=== PATIENT | male | born 1960 | race Caucasian/White ===

== ENCOUNTER 2021-03-26 17:29 | Emergency (ER) | payer MEDICARE, MEDICAID ==
[~2021-03-26] VITALS: Ht 170.2 cm; Wt 85.5 kg
[2021-03-26 17:43] VITALS: TEMP 98.4
[2021-03-26] MEDS ORDERED: ASPIRIN 81M81 MG/TA2 PO ×2 (17:48→18:13)
[2021-03-26] MEDS ORDERED: ATACAND32 MG PO ×2 (17:48→18:12)
[2021-03-26 18:04] LABS: BASO # 0.1 K/mm3 (0.0-0.2); BASO % 0.7 % (0.0-2.0); EOS # 0.2 K/mm3 (0.0-0.7); EOS % 2.3 % (0-4.0); GRAN # 6.2 K/mm3 (1.4-6.5); GRAN % 67.9 % (42.2-75.2); HEMATOCRIT 41.1 % (42.0-52.0); HEMOGLOBIN 13.8 g/dl (13.5-18.0); LYMPH # 1.7 K/mm3 (1.2-3.4); LYMPH % 18.9 % (20.0-51.0); MEAN CELL VOLUME 88 fl (80.0-100.0); MEAN CORPUSCULAR HEMOGLOBIN 30 pg (27.0-31.0); MEAN CORPUSCULAR HGB CONC 34 g/dl (33.0-37.0); MEAN PLATELET VOLUME 9.5 fl (7.4-10.4); MONO # 0.8 K/mm3 (0.1-0.6); MONO % 9.1 % (1.7-9.3); PLATELET COUNT 236 K/mm3 (130-400); RED BLOOD COUNT 4.68 M/mm3 (4.20-5.60); REDCELL DISTRIBUTION WIDTH-CV 14.5 % (11.5-14.5)
[2021-03-26] MEDS ORDERED: DEPAKOTE ER 50500 MG PO (18:10)
[2021-03-26] MEDS ORDERED: BUSPAR DIVIDOSE15 MG PO (18:11)
[2021-03-26] MEDS ORDERED: SEROQUEL400 MG PO (18:11)
[2021-03-26] MEDS ORDERED: MULTI-VITAMIN W1 TA1 PO (18:12)
[2021-03-26] MEDS ORDERED: PROTONIX 40MG T40 MG PO (18:12)
[2021-03-26] MEDS ORDERED: PROFERRIN ES12 MG PO (18:13)
[2021-03-26] MEDS ORDERED: MAG-G500 MG (18:13)
[2021-03-26] MEDS ORDERED: FISH OIL 500 M1 EAC1 PO (18:14)
[2021-03-26 18:38] LABS: ALANINE AMINOTRANSFERASE 33 U/L (0-55); ALBUMIN 4.1 gm/dL (3.5-5.0); ALKALINE PHOSPHATASE 57 U/L (0-750); ANION GAP 10 mmol/L (7-16); AST,SGOT 25 U/L (5-34); BILIRUBIN,TOTAL 0.3 mg/dL (0.2-1.2); BLOOD UREA NITROGEN 20 mg/dL (8-26); CALCIUM 10.2 mg/dL (8.4-10.2); CARBON DIOXIDE 27 mmol/L (22-29); CHLORIDE 105 mmol/L (98-107); CREATININE, serum 1.12 mg/dL (0.72-1.25); POTASSIUM 4.2 mmol/L (3.5-4.5); SODIUM 142 mmol/L (136-145)
[2021-03-26 18:44] LABS: COLLECTION METHOD CLEAN CATCH
[2021-03-26 18:45] LABS: TROPONIN-I < 0.010 ng/mL (0.00-0.033)
[2021-03-26 18:50] LABS: PH 6 (5-8); SQUAMOUS EPITHELIAL None Seen /hpf; URINE APPEARANCE Clear; URINE BACTERIA None Seen /hpf; URINE BILIRUBIN Negative (NEGATIVE); URINE BLOOD Negative (NEGATIVE); URINE COLOR Straw; URINE GLUCOSE Negative (NEGATIVE); URINE KETONE Negative (NEGATIVE); URINE LEUKOCYTE ESTERASE Trace (NEGATIVE); URINE NITRATE Negative (NEGATIVE); URINE PROTEIN(semi-quant) Negative (NEGATIVE); URINE RBC 0-2 /hpf; URINE UROBILINOGEN Negative (NEGATIVE)
[2021-03-26 19:03] LABS: GLUCOSE 90 mg/dL (70-99)
[2021-03-26 22:20] VITALS: BP 169/118; PULSE 91
== END 2021-03-26 22:25 | disposition home or self-care (01) ==
LOC: COL.ER 17:29
PROVIDERS: Nurse Practitioner Primary Care
DX: I10 Essential (primary) hypertension (principal); I25.2 Old myocardial infarction; F25.9 Schizoaffective disorder, unspecified; F17.210 Nicotine dependence, cigarettes, uncomplicated; Z79.899 Other long term (current) drug therapy
CPT/HCPCS: J0360

== ENCOUNTER 2021-06-06 06:48 | Emergency (ER) | payer MEDICARE, MEDICAID ==
[~2021-06-06] VITALS: Ht 167.6 cm; Wt 90.9 kg
[~2021-06-06 06:48] MED LIST: ASPIRIN 81M81 MG/TA2 PO; ATACAND32 MG PO; BUSPAR DIVIDOSE15 MG PO; DEPAKOTE ER 50500 MG PO; FISH OIL 500 M1 EAC1 PO; MAG-G500 MG; MULTI-VITAMIN W1 TA1 PO; PROFERRIN ES12 MG PO; PROTONIX 40MG T40 MG PO; SEROQUEL400 MG PO
[2021-06-06 07:09] VITALS: TEMP 97.1
[2021-06-06 08:00] LABS: HEMOGLOBIN 11.8 g/dl (13.5-18.0); MEAN CELL VOLUME 90 fl (80.0-100.0); MEAN CORPUSCULAR HEMOGLOBIN 31 pg (27-31); MEAN CORPUSCULAR HGB CONC 34 g/dl (33.0-37.0); MEAN PLATELET VOLUME 9.1 fl (7.4-10.4); PLATELET COUNT 339 K/mm3 (130-400); RED BLOOD COUNT 3.87 M/mm3 (4.20-5.60)
[2021-06-06 08:12] LABS: BILIRUBIN,TOTAL 0.2 mg/dL (0.2-1.2); CALCIUM 9.4 mg/dL (8.4-10.2); CREATININE, serum 1.31 mg/dL (0.72-1.25); POTASSIUM 4.2 mmol/L (3.5-4.5); TOTAL PROTEIN 7.5 gm/dL (6.2-8.1)
[2021-06-06 08:41] LABS: EOSINOPHIL 3 % (0-4); LYMPHOCYTE 20 % (20.0-51.0); NEUTROPHILS 62 % (42.0-75.2)
[2021-06-06 08:42] LABS: PLATELET ESTIMATE NORMAL (NORMAL)
[2021-06-06 08:51] VITALS: BP 116/81; PULSE 101
== END 2021-06-06 08:51 | disposition home or self-care (01) ==
LOC: COL.ER 06:48
PROVIDERS: Student in an Organized Health Care Education/Training Program
DX: J06.9 Acute upper respiratory infection, unspecified (principal); F17.290 Nicotine dependence, other tobacco product, uncomplicated; Z20.822 Contact with and (suspected) exposure to COVID-19

== ENCOUNTER 2021-10-24 11:01 | Emergency (ER) | payer MEDICARE, MEDICAID ==
[~2021-10-24] VITALS: Ht 167.6 cm; Wt 98.6 kg
[2021-10-24] MEDS ORDERED: LEXAPRO 10MG10 MG PO (11:29)
[2021-10-24] MEDS ORDERED: VRAYLAR1.5 MG PO (11:30)
[2021-10-24] MEDS ORDERED: AMBIEN 10MG10 MG PO (11:30)
[2021-10-24] MEDS ORDERED: LOFIBRA160 MG PO (11:31)
[2021-10-24] MEDS ORDERED: NORVASC 10MG10 MG PO (11:31)
[2021-10-24] MEDS ORDERED: IRON TABLETS325 MG PO (11:32)
[2021-10-24] MEDS ORDERED: VIAGRA100 M1 (11:32)
[2021-10-24 12:05] LABS: BASO % 0.3 % (0.0-2.0); EOS % 0.1 % (0.0-4.0); GRAN # 5.9 K/mm3 (1.4-6.5); GRAN % 86.3 % (42.2-75.2); HEMATOCRIT 42.4 % (42.0-52.0); HEMOGLOBIN 14.2 g/dl (13.5-18.0); LYMPH # 0.6 K/mm3 (1.2-3.4); LYMPH % 8.8 % (20.0-51.0); MEAN CELL VOLUME 90 fl (80.0-100.0); MEAN CORPUSCULAR HEMOGLOBIN 30 pg (27-31); MEAN CORPUSCULAR HGB CONC 34 g/dl (33.0-37.0); MEAN PLATELET VOLUME 9.7 fl (7.4-10.4); MONO # 0.3 K/mm3 (0.1-0.6); MONO % 4.1 % (1.7-9.3); PLATELET COUNT 280 K/mm3 (130-400); RED BLOOD COUNT 4.74 M/mm3 (4.20-5.60)
[2021-10-24 12:21] LABS: ALBUMIN 4.8 gm/dL (3.5-5.0); BILIRUBIN,TOTAL 0.5 mg/dL (0.2-1.2); CALCIUM 9.1 mg/dL (8.4-10.2); CREATININE, serum 1.45 mg/dL (0.72-1.25); TOTAL PROTEIN 7.7 gm/dL (6.2-8.1)
[2021-10-24] MEDS ORDERED: ZOFRAN ODT4 MG PO (14:14)
[2021-10-24 15:02] VITALS: BP 154/99; PULSE 97; TEMP 97.9
== END 2021-10-24 15:14 | disposition home or self-care (01) ==
LOC: COL.ER 11:01
PROVIDERS: Personal Emergency Response Attendant
DX: R11.2 Nausea with vomiting, unspecified (principal); R19.7 Diarrhea, unspecified; R10.84 Generalized abdominal pain; Z87.19 Personal history of other diseases of the digestive system; Z28.310 Unvaccinated for COVID-19
CPT/HCPCS: J2270; J2405; J7030; Q9967

== ENCOUNTER 2022-02-21 11:50 | Emergency (ER) | payer MEDICARE, MEDICAID ==
[~2022-02-21] VITALS: Ht 167.6 cm; Wt 93.2 kg
[~2022-02-21 11:50] MED LIST changes: +AMBIEN 10MG10 MG PO; +IRON TABLETS325 MG PO; +LEXAPRO 10MG10 MG PO; +LOFIBRA160 MG PO; +NORVASC 10MG10 MG PO; +VIAGRA100 M1; +VRAYLAR1.5 MG PO; +ZOFRAN ODT4 MG PO
[2022-02-21 12:24] VITALS: TEMP 98.1
[2022-02-21] MEDS ORDERED: ATARAX 10MG10 MG/TAB PO (12:37)
[2022-02-21] MEDS ORDERED: NATURE'S BLEND500 M1 PO (12:38)
[2022-02-21] MEDS ORDERED: NATURE'S BLEND600 M2 PO (12:39)
[2022-02-21] MEDS ORDERED: B COMPLEX #11 TA1 PO (12:39)
[2022-02-21] MEDS ORDERED: NATURE'S BLE1000 MCG (12:40)
[2022-02-21] MEDS ORDERED: ASHWAGANDHA500 MG PO (12:40)
[2022-02-21 12:56] LABS: BASO % 0.2 % (0.0-2.0); EOS # 0.2 K/mm3 (0.0-0.7); EOS % 1.2 % (0.0-4.0); GRAN % 79.5 % (42.2-75.2); HEMATOCRIT 38.2 % (42.0-52.0); HEMOGLOBIN 13.3 g/dl (13.5-18.0); LYMPH # 1.5 K/mm3 (1.2-3.4); LYMPH % 10.5 % (20.0-51.0); MEAN CELL VOLUME 86 fl (80.0-100.0); MEAN CORPUSCULAR HEMOGLOBIN 30 pg (27-31); MEAN CORPUSCULAR HGB CONC 35 g/dl (33.0-37.0); MEAN PLATELET VOLUME 9.6 fl (7.4-10.4); MONO # 1.1 K/mm3 (0.1-0.6); MONO % 8.2 % (1.7-9.3); PLATELET COUNT 244 K/mm3 (130-400); RED BLOOD COUNT 4.45 M/mm3 (4.20-5.60); REDCELL DISTRIBUTION WIDTH-CV 13.2 % (11.5-14.5)
[2022-02-21 13:15] LABS: ALBUMIN 3.7 gm/dL (3.5-5.0); BILIRUBIN,TOTAL 0.5 mg/dL (0.2-1.2); CALCIUM 9.4 mg/dL (8.4-10.2); CREATININE, serum 1.14 mg/dL (0.72-1.25); POTASSIUM 4.2 mmol/L (3.5-4.5)
[2022-02-21] MEDS ORDERED: CLEOCIN HCL300 MG PO (13:59)
[2022-02-21 15:33] VITALS: BP 137/97; PULSE 86
== END 2022-02-21 16:20 | disposition home or self-care (01) ==
LOC: COL.ER 11:50
PROVIDERS: Physician Assistant
DX: K12.2 Cellulitis and abscess of mouth (principal); R22.0 Localized swelling, mass and lump, head; F17.210 Nicotine dependence, cigarettes, uncomplicated; Z28.310 Unvaccinated for COVID-19
CPT/HCPCS: J0696; Q9967

== ENCOUNTER 2022-10-29 14:49 | Emergency (ER) | payer MEDICARE, MEDICAID ==
[~2022-10-29] VITALS: Ht 167.6 cm; Wt 88.2 kg
[~2022-10-29 14:49] MED LIST changes: +ASHWAGANDHA500 MG PO; +ATARAX 10MG10 MG/TAB PO; +B COMPLEX #11 TA1 PO; +CLEOCIN HCL300 MG PO; +NATURE'S BLE1000 MCG; +NATURE'S BLEND500 M1 PO; +NATURE'S BLEND600 M2 PO
[2022-10-29 15:04] VITALS: TEMP 98.6
[2022-10-29 15:40] LABS: BASO # 0.1 K/mm3 (0.0-0.2); BASO % 0.4 % (0.0-2.0); EOS % 0.2 % (0.0-4.0); GRAN # 11.2 K/mm3 (1.4-6.5); GRAN % 87.6 % (42.2-75.2); HEMATOCRIT 43.9 % (42.0-52.0); HEMOGLOBIN 15.5 g/dl (13.5-18.0); LYMPH # 1.1 K/mm3 (1.2-3.4); LYMPH % 8.7 % (20.0-51.0); MEAN CELL VOLUME 84 fl (80.0-100.0); MEAN CORPUSCULAR HEMOGLOBIN 30 pg (27-31); MEAN CORPUSCULAR HGB CONC 35 g/dl (33.0-37.0); MEAN PLATELET VOLUME 9.5 fl (7.4-10.4); MONO # 0.3 K/mm3 (0.1-0.6); MONO % 2.4 % (1.7-9.3); PLATELET COUNT 433 K/mm3 (130-400); REDCELL DISTRIBUTION WIDTH-CV 12.8 % (11.5-14.5)
[2022-10-29 16:06] LABS: ALANINE AMINOTRANSFERASE 28 U/L (0-55); ALBUMIN 4.4 gm/dL (3.4-4.8); ALKALINE PHOSPHATASE 69 U/L (40-150); ANION GAP 18 mmol/L (7-16); AST,SGOT 20 U/L (5-34); BILIRUBIN,TOTAL 0.5 mg/dL (0.2-1.2); BLOOD UREA NITROGEN 14 mg/dL (8-26); CALCIUM 10.5 mg/dL (8.4-10.2); CARBON DIOXIDE 18 mmol/L (23-31); CHLORIDE 106 mmol/L (98-107); CREATININE, serum 1.13 mg/dL (0.72-1.25); GLUCOSE 115 mg/dL (70-99); LIPASE 20 U/L (8-78); POTASSIUM 3.8 mmol/L (3.5-4.5); SODIUM 142 mmol/L (136-145); TOTAL PROTEIN 8.7 gm/dL (6.2-8.1)
[2022-10-29 16:15] LABS: TROPONIN-I < 0.010 ng/mL (0.00-0.033)
[2022-10-29 16:58] LABS: COLLECTION METHOD CLEAN CATCH
[2022-10-29 17:08] LABS: PH 8.5 (5.0-8.5); URINE APPEARANCE Clear (CLEAR/HAZY); URINE COLOR Yellow (YELLOW); URINE GLUCOSE Negative (NEGATIVE); URINE KETONE 2+ (NEGATIVE); URINE PROTEIN(semi-quant) 1+ (NEGATIVE); URINE UROBILINOGEN 0.2 E.U/dL (0.2-1.0)
[2022-10-29 17:09] LABS: URINE BLOOD 2+ (NEGATIVE); URINE NITRATE Negative (NEGATIVE)
[2022-10-29 17:14] LABS: MUCOUS Present (NOT PRESENT); SQUAMOUS EPITHELIAL None Seen /hpf (0-10); URINE BACTERIA None Seen /hpf (NONE SEEN); URINE RBC >50 /hpf (0-2)
[2022-10-29 20:34] VITALS: BP 140/91; PULSE 98
== END 2022-10-29 20:35 | disposition home or self-care (01) ==
LOC: COL.ER 14:49
PROVIDERS: Emergency Medicine
DX: N28.1 Cyst of kidney, acquired (principal); N20.0 Calculus of kidney; R07.9 Chest pain, unspecified; R74.02 Elevation of levels of lactic acid dehydrogenase [LDH]; F17.200 Nicotine dependence, unspecified, uncomplicated; Z82.49 Family history of ischemic heart disease and other diseases of the circulatory system; Z28.310 Unvaccinated for COVID-19
CPT/HCPCS: J1885; J2270; J2405; J7030; Q9967